=== PATIENT | female | born 1980 | race African-American/Black ===

== ENCOUNTER 2020-02-26 09:22 | Day surgery (SDC) | payer BC ==
[2020-02-24 08:41] VITALS: BMI 21.4
[2020-02-26 11:27] VITALS: TEMP 98
[2020-02-26 11:39] VITALS: PULSE 76
[2020-02-26 12:07] VITALS: BP 111/75
--- NOTE | 2020-02-29 17:29 | PATH ---
Surgical Pathology Report Patient Name: ELLEN WINTSON [facility]. Rec. #: [id number] /Age/Gender: 1980 (Age: 40) / F Account: [id number] Location: [facility]-ENDOSCOPY Taken: 02/26/2020 Received: 02/26/2020 Reported: 02/29/2020 Physicians: Sana Haines M.D. Specimen(s) Received A: GASTRIC ULCER ANTRUM B: BULB AND SECOND PORTION OF DUODENUM C: ANTRUM Clinical History Rule out gastric ulcer Postoperative diagnosis: Gastric antral ulcer Final Diagnosis A. GASTRIC ANTRAL ULCER, BIOPSY: GASTRIC MUCOSA WITH CHRONIC GASTRITIS. IMMUNOSTAIN FOR H. PYLORI IS NEGATIVE. NEGATIVE FOR INTESTINAL METAPLASIA. B. BULB AND SECOND PORTION OF DUODENUM, BIOPSY: DUODENAL MUCOSA WITH FOCAL NONSPECIFIC CHRONIC DUODENITIS. C. ANTRUM, BIOPSY: GASTRIC MUCOSA WITH CHRONIC GASTRITIS. IMMUNOSTAIN FOR H. PYLORI IS NEGATIVE. NEGATIVE FOR INTESTINAL METAPLASIA. Electronically Signed Trinity Ozuna M.D. Gross Description A. Received in formalin, labeled "biopsy gastric antral ulcer" are 3 pérez, irregular portions of soft tissue averaging 0.1 cm. in greatest dimension. The specimens are submitted in toto in one cassette. B. Received in formalin, labeled "biopsy bulb and second portion of duodenum" are 4 pérez, irregular portions of soft tissue ranging from 0.3-0.4 cm. in greatest dimension. The specimens are submitted in toto in one cassette. C. Received in formalin, labeled "biopsy antrum" are 3 pérez, irregular portions of soft tissue ranging from 0.2-0.4 cm. in greatest dimension. The specimens are submitted in toto in one cassette. /02/26/2020 saudi/02/26/2020
== END 2020-02-26 12:30 | disposition home or self-care (01) ==
LOC: JASU-ENDO 09:22
PROVIDERS: ATTEND Internal Medicine Gastroenterology
PROC: 0DB68ZX Excision of Stomach, Via Natural or Artificial Opening Endoscopic, Diagnostic (ICD-10-PCS; principal; 2020-02-26 10:00)
DX: K25.9 Gastric ulcer, unspecified as acute or chronic, without hemorrhage or perforation (principal); K29.50 Unspecified chronic gastritis without bleeding
CPT/HCPCS: 81025; 88305-TC; 88342-TC